=== PATIENT | female | born 1965 | race Caucasian/White ===

== ENCOUNTER 2017-11-27 17:05 | Emergency (ER) | payer MEDICAID ==
[~2017-11-27] VITALS: Ht 152.4 cm; Wt 82.3 kg
[2017-11-27] MEDS ORDERED: ATEN25TA PO (17:18)
[2017-11-27] MEDS ORDERED: KETOROLAC TROMETHAMINE 60 MG/2 ML VIAL IM ONE (18:15)
[2017-11-27] MEDS ORDERED: CEPHALEXIN MONOHYDRATE 500 MG CAPSULE PO ONE (18:15)
[2017-11-27] MEDS ORDERED: IBUPROFEN 800 MG TABLET PO ONE (18:45)
[2017-11-27 19:28] VITALS: BP 131/68
== END 2017-11-27 20:28 | disposition home or self-care (01) ==
LOC: EMS 17:06
DX: S63.601A Unspecified sprain of right thumb, initial encounter (principal); R11.10 Vomiting, unspecified; Z79.899 Other long term (current) drug therapy; X50.9XXA Other and unspecified overexertion or strenuous movements or postures, initial encounter; Y93.89 Activity, other specified; Y92.89 Other specified places as the place of occurrence of the external cause; Y99.8 Other external cause status
CPT/HCPCS: 29130; 73140; 99284; J1885